=== PATIENT | female | born 1970 | race Asian ===

== ENCOUNTER 2016-08-25 06:00 | Day surgery (SDC) | payer OTHER ==
[~2016-08-25] VITALS: Ht 157.5 cm; Wt 54.0 kg
[2016-08-25] MEDS ORDERED: CEFAZOLIN 1 GM IVPB PREMIX 50 ML IV ONE (07:10)
[2016-08-25] MEDS ORDERED: ONDANSETRON HCL 4 MG/2 ML VIAL IVP ONE (07:10)
[2016-08-25] MEDS ORDERED: MIDAZOLAM HCL 5 MG/5 ML VIAL IVP ONE (07:10)
[2016-08-25] MEDS ORDERED: LR 1,000 ML IV.SOLN IV ONE (07:10)
[2016-08-25] MEDS ORDERED: NS IRRIG SOLN 1000 ML IR ONE (07:10)
[2016-08-25] MEDS ORDERED: fentaNYL CITRATE 250 MCG/5 ML AMP IV ONE (07:10)
[2016-08-25] MEDS ORDERED: BUPIVACAINE /EPINEPHRINE/PF 0.5% 30 ML VIAL INJ ONE (07:10)
[2016-08-25] MEDS ORDERED: ROCURONIUM BROMIDE 10 MG/ML (ZEMURON) IV ONE (07:10)
[2016-08-25] MEDS ORDERED: fentaNYL CITRATE/PF 100 MCG/2 ML AMP IVP ONE (07:10)
[2016-08-25] MEDS ORDERED: NS 1000 ML BAG IV ONE (07:10)
[2016-08-25] MEDS ORDERED: KETOROLAC TROMETHAMINE 30 MG VIAL IVP ONE (07:10)
[2016-08-25] MEDS ORDERED: LR 1,000 ML IV SCH (09:11)
[2016-08-25] MEDS ORDERED: MEPERIDINE HCL/PF 25 MG/ML DISP.SYRIN IVP PRN (09:15)
[2016-08-25] MEDS ORDERED: HYDROmorphone 2 MG/ML VIAL IVP PRN ×2 (09:15)
[2016-08-25] MEDS ORDERED: HYDROmorphone 1 MG INJ. 1 MG/ML AMPUL IVP PRN (09:15)
[2016-08-25] MEDS ORDERED: HYDROmorphone 2 MG TAB PO PRN (10:30)
[2016-08-25] MEDS ORDERED: OXYCODONE/ACETAMINOPHEN 5-325 TABLET PO PRN (10:30)
[2016-08-25] MEDS ORDERED: ONDANSETRON HCL 4 MG/2 ML VIAL IVP PRN (10:30)
[2016-08-25] MEDS ORDERED: PROMETHAZINE HCL 25 MG/ML AMP IM PRN (10:30)
[2016-08-25 12:14] VITALS: BP_SYST 113
== END 2016-08-25 15:20 | disposition home or self-care (01) ==
LOC: SDS 06:00 → SMU 06:00 → EDBD 07:30 → SDS 15:20
PROVIDERS: ATTEND Obstetrics & Gynecology
DX: D25.2 Subserosal leiomyoma of uterus (principal); E11.39 Type 2 diabetes mellitus with other diabetic ophthalmic complication; E11.3293 Type 2 diabetes mellitus with mild nonproliferative diabetic retinopathy without macular edema, bilateral; Z80.3 Family history of malignant neoplasm of breast; Z88.8 Allergy status to other drugs, medicaments and biological substances; Z79.4 Long term (current) use of insulin; Z98.890 Other specified postprocedural states; E78.5 Hyperlipidemia, unspecified
CPT/HCPCS: 36415; 57000; 58571; 82962; 86886; 86900; 86901; 88305; 88307; 88311; C1727; J0690; J1885; J2250; J2405; J3010 ×2; J3490; J7030; J7120; E0190